=== PATIENT | female | born 1970 | race Caucasian/White ===

== ENCOUNTER → 2016-08-28 | Outpatient (CLI) | payer OTHER ==
[~2016-08-28] MED LIST: ATV/1 PO; ATV5X PO; CHOL100010 PO; DICY10CA12 PO; FLUT1INH INH; FURO-85 PO; FURO20TA PO; HYDR-5688 PO; HYG/25 PO; IPRA1AER2 INH; LEVO125T4 PO; LEVO125T72 PO; NAPR-1168 PO; NRN/300 PO; OMEP20CA9 PO; OMEP40CA41 PO; OXGN; PROB1CAP PO; TRAZ50TA35 PO; WLLSR/150 PO; WLLSR150 PO
== END | disposition home or self-care (01) ==
LOC: C.CPL 10:53
PROVIDERS: ATTEND Orthopaedic Surgery
DX: G56.22 Lesion of ulnar nerve, left upper limb (principal)

== ENCOUNTER → 2016-09-02 | Day surgery (SDC) | payer OTHER ==
[2016-08-29 09:23] VITALS: Ht 167.6 cm; Wt 100.0 kg
[~2016-09-02] VITALS: Ht 167.6 cm; Wt 100.0 kg
[~2016-09-02] MED LIST changes: +ATROPINE SULFATE 0.1 MG/ML 5ML SYR IV PRN; -ATV5X PO; +BUPIVACAINE 0.5 % 5 MG/1 ML MPF 30ML VIAL ONE; +CEFAZOLIN 2000 MG/60 ML D5W IV SCH; -CHOL100010 PO; +EpHEDrine SULFATE INJ 50 MG/ML AMP IV PRN; +FENTANYL CITRATE INJ 50 MCG/1 ML 2 ML VIAL ONE; -FURO20TA PO; +KETOROLAC TROMETHAMINE 30 MG/ML VIAL ONE; +LACTATED RINGER'S 1000ML 1,000 ML IV SCH; -LEVO125T4 PO; +LIDOCAINE HCL 2% 2 ML VIAL (20MG/ML) ONE; +LIDOCAINE MPF 1% INJ 30 ML SDV (L&D) INFIL ONE; +MIDAZOLAM HCL 1 MG/ML 2ML VIAL ONE; -OMEP20CA9 PO; +ONDANSETRON INJ 2 MG/ML 2 ML VIAL IV PRN; +ONDANSETRON INJ 2 MG/ML 2 ML VIAL ONE; +OXYCODONE/ACETAMINOPHEN 5-325 TAB PO PRN; +PROPOFOL IV EMULSION 10 MG/ML 20 ML VIAL IV ONE; +SODIUM CHLORIDE 0.9% 1000ML 1,000 ML IV SCH; -WLLSR150 PO
--- NOTE | 2016-09-02 07:38 | History & Physical Bridge - [place] ---
H&P Re-Evaluation Bridge Note: I have examined the patient, reviewed the History & Physical and in the interval since the performance of the History & Physical I have noted the following changes of clinical significance: No changes noted
--- NOTE | 2016-09-02 08:24 | [facility] Post Operative Brief Note ---
Immediate Operative Summary Operative Date Sep 02, 2016. Pre-Operative Diagnosis Left Elbow Cubital Tunnel Syndrome Post-Operative Diagnosis Same Procedure(s) Performed Left Ulnar Nerve Decompression Surgeon Dr. Pimentel [employer] Rep[employer]cer Surgeon(s) Wily Valentine PA-C Estimated Blood Loss None Findings ABOVE Specimens None Anesthesia LMA Complication(s) None Disposition Recovery Room / PACU
--- NOTE | 2016-09-02 08:30 | Discharge Instructions-SurgCtr ---
Discharge Instructions Visit Reason for Visit: Left Cubital Tunnel Syndrome, Pain In Elbow Discharge Discharge Diagnosis / Problem: SAME ABOVE Discharge Goals Goal(s): Decrease discomfort, Improve function Activity Recommendations Activity Limitations: as noted below Lifting Limitations: until after follow-up appointment Exercise/Sports Limitations: until after follow-up appointment Shower/Bathe: keep incision dry Anesthesia . Post Anesthesia Instructions: If you have had General Anesthesia or IV Sedation: * Do not drive today. * Resume driving when surgeon permits. * Do not make important decisions or sign legal documents today. * Call surgeon for: 1. Temperature elevations greater than 101 degrees F. 2. Uncontrollable pain. 3. Excessive bleeding. 4. Persistent nausea and vomiting. 5. Medication intolerance (nausea, vomiting or rash). * For nausea and vomiting use only clear liquids such as: tea, soda, bouillon until nausea subsides, then gradually increase diet as tolerated. * If you have any concerns or questions, call your surgeon's office. If physician is unavailable and it is an emergency, call 911 or go to the nearest emergency room. . Instructions / Follow-Up Instructions / Follow-Up MEDICATIONS: * Resume previous medications unless instructed otherwise by your surgeon. * Always take pain medication on a full stomach or with food to avoid upset stomach. * Do not drink alcohol or drive while taking narcotics. * Ibuprofen or Tylenol may be taken if narcotic not needed. SPECIAL CARE INSTRUCTIONS: __ None _X_ Keep extremity elevated and iced x 48 hours; apply ice 20-30 minutes 8-10 times/day. May remove at night. _X_ Sling __24 hrs/day _X_ Remove at night __ Shoulder Immobilizer __ 24 hrs/day __ Remove at night _X_ Dressing _X_ Maintain until seen in office, may shower with plastic over site __ Remove dressings in 24-48 hours and then may shower __ Cover incisions with band-aids after showering __ Do not remove steri-strips Call physician if chills or temperature rises above 102 degrees or pain unrelieved by prescribed pain medications at . . Diet Recommendations Home Diet: resume previous diet Procedures Procedures Performed: Left Ulnar Nerve Decompression Pending Studies Studies pending at discharge: no Medical Emergencies . Who to Call and When: Medical Emergencies: If at any time you feel your situation is an emergency, please call 911 immediately. . Non-Emergent Contact Non-Emergency issues call your: Primary Care Provider . . "Provider Documentation" section prepared by Tyler Valentine.
[2016-09-02] MEDS: FENTANYL CITRATE INJ 50 MCG/1 ML 2 ML VIAL IV PRN ×2 (08:45→08:52)
--- NOTE | 2016-09-02 08:45 | OPERATIVE REPORT ---
DATE OF OPERATION: 09/02/2016 PREOPERATIVE DIAGNOSIS: Left ulnar nerve entrapment elbow, cubital tunnel syndrome. POSTOPERATIVE DIAGNOSIS: Same. PROCEDURE: Decompression ulnar nerve, left elbow. SURGEON: Dr. Pimentel. DIGITIZER OPERATOR: Tyler Valentine PA-C. ANESTHESIOLOGIST: Dr. Topete. ANESTHESIA: LMA general. DRAINS: None. COMPLICATIONS: None. CONDITION: The patient tolerated the procedure well and returned to recovery room in apparent satisfactory condition. INDICATIONS FOR SURGERY: Yoel is a 46-year-old female who has had a history now of numbness and tingling in the both arms but left worse than right and has been more persistent. She has had 2 neurological exams done by [facility] nerve conduction studies, [address] Tellez [address] Arriaga. She also had a consultation with Dr. Arriaga and between our exam, her history, his exam and history and EMG studies we felt that she has ulnar nerve entrapment of her left elbow. Went over treatment options and elected to go ahead and proceed with surgery. Procedure, expected outcomes and side effects, and risks were all explained in detail prior to surgery in the office, especially the amount of time recovery needed for nerve in this location, possibility of permanent numbness around the incision site and no guarantees of the operation. Procedure, expected outcomes and side effects, and risks were all explained in detail. OPERATION AND FINDINGS: PROCEDURE: The patient was taken to the OR at which time she was placed supine on the operating table and put to sleep by the anesthesia department. Left arm was prepped and draped. An axillary tourniquet was placed on the arm and the arm then was prepped and draped in usual sterile fashion for surgery. after exsanguinating the arm and putting the tourniquet up to 250 mmHg we made a curvilinear incision between the medial epicondyle and the olecranon process and dissected down and identified the ulnar nerve. Very carefully we decompressed that we could see where it was entrapped right at the flexion portion of the elbow and a little bit distally at the flexor carpi ulnaris muscle insertion. We very carefully decompressed the nerve and made sure we did not subluxate. I took her through a range of motion and thought it was adequately decompressed both proximally and distally. The wound then was copiously irrigated. Electrocautery was used to control any areas of bleeding. The skin was closed with interrupted 2-0 Vicryl sutures. Skin deondre. Marcaine without epinephrine was placed in the skin edges. She was placed in a postop dressing with arm in a splint at about 70-80 degrees of flexion and returned to recovery room in apparent satisfactory condition. I attest to the content of the Intraoperative Record and any orders documented therein. Any exceptio ns are noted below.
--- NOTE | 2016-09-02 09:06 | Anesthesia Progress Nt - [facility] ---
Anesthesia Post Op Note Date & Time Sep 02, 2016 at 09:06 Vital Signs Vital Signs Past 12 Hours Date Time Temp Pulse Resp B/P Pulse Ox O2 Delivery O2 Flow Rate FiO2 09/02/16 07:09 36.4 76 18 129/94 97 Room Air Notes Mental Status: alert / awake / arousable, participated in evaluation Pt Amnestic to Procedure: Yes Nausea / Vomiting: adequately controlled Pain: adequately controlled Airway Patency, RR, SpO2: stable & adequate BP & HR: stable & adequate Hydration State: stable & adequate Anesthetic Complications: no major complications apparent
[2016-09-02 09:30] VITALS: TEMP 36.2
[2016-09-02 10:05] VITALS: BP 146/91; PULSE 84; O2SAT 97
== END | disposition home or self-care (01) ==
LOC: X.SURG 06:47
PROVIDERS: ATTEND Orthopaedic Surgery
DX: G56.22 Lesion of ulnar nerve, left upper limb (principal); G47.30 Sleep apnea, unspecified; J43.9 Emphysema, unspecified; E03.9 Hypothyroidism, unspecified; I10 Essential (primary) hypertension